=== PATIENT | female | born 1970 ===

== ENCOUNTER 2016-11-18 11:03 | Emergency (ER) | payer OTHER ==
[2016-11-18] MEDS ORDERED: Lidocaine 5% Patch TD STA (12:00)
[2016-11-18] MEDS ORDERED: Dexamethasone 4 mg/1 ml IM STA (12:00)
[2016-11-18] MEDS ORDERED: Dexamethasone 4 mg/1 ml ONE (12:11)
[2016-11-18] MEDS ORDERED: Lidocaine 5% Patch TD ONE (12:12)
--- NOTE | 2016-11-18 12:20 | C.PDOC ---
History Of Present Illness 46 y/o female with Hx of carpel tunnel syndrome and neck pain secondary to neck surgery presents to ED with complaints of pain to right wrist, hand and neck for "several days". Patient states pain is worse with movement and denies new trauma, numbness, weakness, chest pain, sob, fever or any other complaints at this time. Time Seen by Provider: 11/18/16 11:43 Chief Complaint (Nursing): Upper Extremity Problem/Injury History Per: Patient History/Exam Limitations: no limitations Onset/Duration Of Symptoms: Days Current Symptoms Are (Timing): Still Present Past Medical History Reviewed: Historical Data, Nursing Documentation, Vital Signs Vital Signs: Last Vital Signs Temp 98.5 F 11/18/16 11:17 Pulse 95 H 11/18/16 11:17 Resp 20 11/18/16 11:17 BP 117/83 11/18/16 11:17 Pulse Ox 97 11/18/16 12:49 - Medical History PMH: Anxiety, Bipolar Disorder, Depression, Hypothyroidism Surgical History: Cholecystectomy, Endoscopy Family History: States: No Known Family Hx - Social History Hx Alcohol Use: No Hx Substance Use: No - Immunization History Hx Tetanus Toxoid Vaccination: No Hx Influenza Vaccination: Yes Hx Pneumococcal Vaccination: No Review Of Systems Except As Marked, All Systems Reviewed And Found Negative. Constitutional: Negative for: Fever, Chills Cardiovascular: Negative for: Chest Pain Respiratory: Negative for: Shortness of Breath Musculoskeletal: Positive for: Neck Pain, Hand Pain Neurological: Negative for: Weakness, Numbness Physical Exam - Physical Exam Appears: Non-toxic, No Acute Distress Skin: Normal Color, Warm, No Pale, No Rash Head: Atraumatic, Normacephalic Eye(s): bilateral: Normal Inspection, PERRL, EOMI Oral Mucosa: Moist Neck: Normal ROM, No Midline Cervical Tenderness, Paracervical Tenderness, Supple Chest: Symmetrical, No Tenderness Cardiovascular: Rhythm Regular, No Friction Rub, No Murmur Respiratory: Normal Breath Sounds, No Rales, No Rhonchi, No Wheezing Back: No CVA Tenderness, No Vertebral Tenderness, No Paraspinal Tenderness Extremity: Capillary Refill (<2 seconds), No Deformity, Other (Pain with flexion of wrist and fingers, full rom) Pulses: Left Radial: Normal, Right Radial: Normal Neurological/Psych: Oriented x3, Normal Motor, Normal Sensation ED Course And Treatment O2 Sat by Pulse Oximetry: 97 (on RA) Pulse Ox Interpretation: Normal Medical Decision Making Medical Decision Making: On re-exam, the patient reports improvement of symptoms. Lungs are CTA, heart is RRR, Abdomen is soft, non-tender and the patient is tolerating PO well. Ambulatory in the ED with steady gait. Follow up with the medical doctor within 1-2 days. Return if worsened. Disposition - Disposition Referrals: [facility] [Outside] Disposition: HOME/ ROUTINE Disposition Time: 12:41 Condition: GOOD Additional Instructions: Follow up with the medical doctor within 1-2 days. Return if worsened. Prescriptions: diaZEpam [Valium] 5 mg PO BID #12 tab Lidocaine 5% [Lidoderm] 1 each TP DAILY #7 patch oxyCODONE/Acetaminophen [Percocet 5/325 mg Tab] 1 tab PO QID PRN #15 tab PRN Reason: Pain predniSONE [Prednisone] 20 mg PO BID #10 tab Instructions: Carpal Tunnel Syndrome (ED) - Clinical Impression Clinical Impression: Carpal tunnel syndrome, Cervical strain - Scribe Statement The provider has reviewed the documentation as recorded by the Ivyibubaldo Munoz All medical record entries made by the Ivyibubaldo were at my direction and personally dictated by me. I have reviewed the chart and agree that the record accurately reflects my personal performance of the history, physical exam, medical decision making, and the department course for this patient. I have also personally directed, reviewed, and agree with the discharge instructions and disposition.
[2016-11-18 13:08] VITALS: BP 130/60; PULSE 52; RESP 18; TEMP 98.1; O2SAT 100
== END 2016-11-18 12:55 | disposition home or self-care (01) ==
LOC: C.ER 11:03
DX: G56.01 Carpal tunnel syndrome, right upper limb (principal); S16.1XXA Strain of muscle, fascia and tendon at neck level, initial encounter; X58.XXXA Exposure to other specified factors, initial encounter
CPT/HCPCS: 96372; 99284; J1100